=== PATIENT | male | born 1990 | race Native Hawaiian/Other Pacific Islander ===

== ENCOUNTER 2018-04-13 15:22 | Emergency (ER) | payer OTHER ==
[~2018-04-13] VITALS: Ht 182.9 cm; Wt 79.4 kg
== END 2018-04-13 16:46 | disposition home or self-care (01) ==
LOC: ED 15:22
PROC: 0HQCXZZ Repair Left Upper Arm Skin, External Approach (ICD-10-PCS; principal; 2018-04-13)
DX: S51.812A Laceration without foreign body of left forearm, initial encounter (principal); W26.0XXA Contact with knife, initial encounter; Y93.89 Activity, other specified; Y92.89 Other specified places as the place of occurrence of the external cause; Y99.8 Other external cause status
CPT/HCPCS: 96372; 99283

== ENCOUNTER 2018-07-03 20:44 | Emergency (ER) | payer OTHER ==
[~2018-07-03] VITALS: Ht 182.9 cm; Wt 79.4 kg
[2018-07-03 21:43] LABS: PLATELET COUNT 228 K/uL (142-355)
[2018-07-03 21:59] LABS: POTASSIUM 3.5 mmol/L (3.6-5.2)
[2018-07-03 22:14] VITALS: BP 1145/74; TEMP 98.9
== END 2018-07-03 22:14 | disposition home or self-care (01) ==
LOC: ED 20:44
DX: K52.9 Noninfective gastroenteritis and colitis, unspecified (principal); D75.1 Secondary polycythemia
CPT/HCPCS: 36415; 74022; 80053; 81000; 82150; 83690; 85027; 87088; 96372; 99283

== ENCOUNTER 2021-08-22 16:25 | Emergency (ER) | payer OTHER ==
[~2021-08-22] VITALS: Ht 182.9 cm; Wt 83.9 kg
[2021-08-22] MEDS ORDERED: METO100T37 PO (16:44)
[2021-08-22 17:45] VITALS: BP 122/73; TEMP 98.7
== END 2021-08-22 17:45 | disposition home or self-care (01) ==
LOC: ED 16:25
DX: S93.491A Sprain of other ligament of right ankle, initial encounter (principal); W11.XXXA Fall on and from ladder, initial encounter; Y93.H9 Activity, other involving exterior property and land maintenance, building and construction; Y92.89 Other specified places as the place of occurrence of the external cause
CPT/HCPCS: 99283